=== PATIENT | female | born 1935 | race Caucasian/White ===

== ENCOUNTER 2022-08-08 07:42 | Observation (INO) | payer MEDICARE, SELFPAY ==
[2022-08-08] VITALS (40 sets, daily range): BP systolic 115–185; BP diastolic 46–106; PULSE 61–96; RESP 15–35; TEMP 36.4–36.9; O2SAT 88–100; BMI 23.5; BMI 22.1
--- NOTE | 2022-08-08 | ECG_ITS ---
APPROVED REPORT Exam: Resting ECG HR:77 bpm ECG Measurements Heart Rate 77 AXES CO 152 P 53 QRSd 132 QRS -31 QT 386 T 136 QTc 418 Conclusion SINUS RHYTHM LEFT AXIS DEVIATION [QRS AXIS < -30] LEFT BUNDLE BRANCH BLOCK [120+ ms QRS DURATION, 80+ ms Q/S IN V1/V2, 85+ ms R IN I/aVL/V5/V6] ABNORMAL ECG UNCONFIRMED REPORT Electronically signed by : Rodney Dobbs MD 08/08/2022 21:47:27
--- NOTE | 2022-08-08 07:51 | XR_ITS ---
FINAL REPORT CLINICAL HISTORY: SHORTNESS OF BREATH FINDINGS: A single portable view of the chest was obtained. There is cardiomegaly with pulmonary vascular congestion. The mediastinum is within normal limits. There are bilateral pulmonary opacities favor pulmonary edema. There are small pleural effusions. The bony thorax is intact. IMPRESSION: Bilateral pulmonary opacities, favor pulmonary edema, with small pleural effusions. Reviewed, Interpreted and Dictated by Kishore Gill III, MD Transcribed by Floridalma Fishman Authenticated and [facility]
[2022-08-08 07:52] LABS: ABG Base Excess -5.4 mmol/L (-2.4-2.3); ABG HCO3 20.8 mmhg (22.0-26.0); ABG Oxygen Saturation 87 % (90-100); ABG PCO2 41.8 mmhg (35.0-45.0); ABG PH 7.31 mmol/L (7.35-7.45); ABG PO2 56.8 mmhg (80-100)
[2022-08-08 07:53] LABS: Allen's Test acceptable; Source Right Radial
[2022-08-08 08:06] LABS: Alanine Aminotransferase 20 U/L (12-78); Albumin Level 3.8 g/dl (3.5-5.0); Albumin/Globulin Ratio 1.3 (1.1-1.8); Alkaline Phosphatase 145 U/L (38-126); Anion Gap 12.9 mEq/L (5-15); Aspartate Amino Transferase 36 U/L (14-36); Bilirubin,Total 0.6 mg/dl (0.2-1.3); Blood Urea Nitrogen 20 mg/dl (7-17); Calcium 8.3 mg/dl (8.4-10.2); Carbon Dioxide 23 mmol/L (22.0-30.0); Chloride 106 mmol/L (98-107); Creatinine Clearance Estimated 43 mL/min (50-200); Estimated Glomerular Filt Rate 52 ml/min (>60); GFR (African American) 63 ML/MIN (>60); Glucose 294 mg/dl (74-100); Potassium 3.9 mmoL/L (3.5-5.1); Sodium 138 mmol/L (136-145); Total Protein,Serum 6.8 g/dl (6.3-8.2)
[2022-08-08 08:12] LABS: Lactic Acid 3.7 mmol/L (0.7-2.1)
[2022-08-08 08:12] LABS: Coronavirus 19, PCR Not Detected (NotDetected); Influenza A, PCR Not Detected (NotDetected); Influenza B, PCR Not Detected (NotDetected)
[2022-08-08 08:15] LABS: NT Pro Brain Natriuretic Pep. 5370 pg/mL (0-450)
--- NOTE | 2022-08-08 08:33 | CA_ITS ---
APPROVED REPORT EXAM: Comprehensive 2D, Doppler, and color-flow Echocardiogram Concrete Pipe Maker: Rosa Cat CRT Ht: 5 ft 7 in Wt: 150lbs BSA: 1.79 BP: 166/70 mmHg Indications: Congestive Heart Failure, Shortness of Breath, Hypertension/HDD, DEMENTIA, CAROTID STENT 2D Dimensions LVOT 1.99 cm (M/F) 1.5-2.5 LA Volume 37.10 mL LA Volume Index 20.30 mL/m2 (M/F) 16-34 M-Mode Dimensions RVDd 1.74 cm (0.9-2.6) LA Diam 3.72 cm (1.9-4.0) LVDd 4.04 cm (3.5-5.7) Ao Diam 3.57 cm (2.0-3.7) LVDs 3.05 cm (3.5-5.7) IVSd 2.11 cm (0.6-1.1) PWd 0.78 cm (0.6-1.1) EF (Teich) 49.20% FS 24.50% EDV (Teich) 71.70 mL TAPSE 2.26 (<1.7) ESV (Teich) 36.40 mL LV Diastology E Decel Time 233.00 (160-240 msec) E/A Ratio 1.07 MED E' 3.80 (< 7 cm/sec) MED A' 6.80 cm/s E'/MED E' Ratio 21.08 (>14) LAT E' 8.10 (<10 cm/sec) LAT A' 10.60 cm/s E/LAT E' Ratio 9.89 (>14) Aortic Valve AI PHT 599.00 ms AO Peak GR. 4.30 mmHg Mitral Valve MV A Velocity 75.00 (40-130 cm/s) E/A Ratio 1.07 MV Decel. Time 233.00 (160-240 ms) Pulmonary Valve PV Peak Velocity 128.00 (50-150 cm/s) Tricuspid Valve TR P. Velocity 207.00 cm/s RAP Estimate 10.00 mmHg RVSP 27.10 mmHg Left Ventricle Left atrium is mildly enlarged, left ventricle is normal size mild concentric left ventricular hypertrophy, estimated ejection fraction 55% with no regional wall motion abnormality, grade 2 diastolic dysfunction seen without tissue Doppler evidence of raise left atrial pressure. Right Ventricle Right atrium and right ventricle are normal size and contractility. Aortic Valve Aortic valve is thickened and calcified without aortic stenosis, there is mild aortic insufficiency. Mitral Valve Mitral valve leaflets are minimally thickened, there is mild mitral regurgitation. Tricuspid Valve Tricuspid grossly normal, there is mild tricuspid regurgitation, tricuspid regurgitation jet velocity is inadequate for calculation of the right ventricular systolic pressure. Pulmonic Valve Pulmonic valve is poorly visualized. Great Vessels Aortic root is normal size. Inferior vena cava is poorly visualized. Pericardium Trivial pericardial effusion noted. There is left-sided pleural effusion noted. Conclusion 1. Mildly enlarged left atrium, normal left ventricular size mild concentric left ventricular hypertrophy, estimated ejection fraction 55% with no regional wall motion abnormality, grade 2 diastolic dysfunction seen without tissue Doppler evidence of raise left atrial pressure. 2. Thickened and calcified aortic valve without aortic stenosis, there is mild aortic insufficiency. 3. Mild mitral and tricuspid regurgitation. 4. Trivial pericardial effusion and left-sided pleural effusion seen. 5. Inferior vena cava is poorly visualized. Electronically signed by : Feliciano Gaming MD 08/08/2022 14:44:16
--- NOTE | 2022-08-08 08:34 | HMH.EDGENADL ---
Discharge Plan Disposition Patient Disposition: Admitted As Inpatient Condition: Serious Clinical Impressions Clinical Impression: Congestive heart failure, Non-ST elevated myocardial infarction, LBBB (left bundle branch block), Pulmonary edema, Acute respiratory failure with hypoxia, Acute hyperglycemia Discharge ED Provider: Matt Kaufman General Adult HPI General Chief complaint: Shortness of Breath/Dyspnea Stated complaint: chest pain Time Seen by Provider: 08/08/22 08:24 Mode of Arrival: EMS Source of Information: Patient Limitations: No Limitations Description of Symptoms (Recalled from ER Triage Doc. by RN): pt to ed via ems c/o shortness of breath. pt states she woke up and was short of air and diaphoretic. pt denies pain anywhere. pt is unsure of her medications or hx. pt seems to be a poor historian. History of Present Illness HPI narrative: History obtained from patient's daughter. The patient has dementia and is unable to give accurate history. Daughter states that the patient got up at 3:30 AM, her usual rising time. Shortly afterwards was seen to have some labored respirations. Few hours later complained of shortness of breath and had rattling respirations. She complained of some chest pain, which she currently denies. No recent cough or fever, vomiting or diarrhea. Daughter states she drank a lot of water yesterday, she is not sure why. She has no known heart or lung disease according to her daughter. Related Data Home Medications Medication Instructions Recorded Confirmed amlodipine 5 mg tablet 5 mg PO DAILY Hypertension 08/08/22 08/08/22 atenolol 50 mg tablet 50 mg PO DAILY Hypertension 08/08/22 08/08/22 clopidogrel 75 mg tablet 75 mg PO DAILY PLATLET INHIBITOR 08/08/22 08/08/22 conjugated estrogens 0.625 mg/gram 1 applic vaginal DIRECTED 08/08/22 08/08/22 vaginal cream (Premarin) HORMONE THERAPY donepezil 10 mg tablet 20 mg PO DAILY MEMORY 08/08/22 08/08/22 levothyroxine 75 mcg tablet 75 mcg PO 2359 THYROID 08/08/22 08/08/22 losartan 100 mg tablet 100 mg PO DAILY Hypertension 08/08/22 08/08/22 memantine 10 mg tablet 10 mg PO BID MEMORY 08/08/22 08/08/22 omeprazole 20 mg capsule,delayed 20 mg PO BID GERD 08/08/22 08/08/22 release pravastatin 10 mg tablet 10 mg PO DAILY Cholesterol 08/08/22 08/08/22 risperidone 1 mg tablet 1 mg PO HS MOOD 08/08/22 08/08/22 Allergies Allergy/AdvReac Type Severity Reaction Status Date / Time erythromycin base Allergy Unknown Verified 08/08/22 13:02 allergy reaction sulfamethoxazole Allergy Unknown Verified 08/08/22 13:02 [From Bactrim] allergy reaction trimethoprim [From Bactrim] Allergy Unknown Verified 08/08/22 13:02 allergy reaction PFSH [facility] Disclaimer: The information contained in this section may have been updated after the patient was seen, as this information can be updated by other users. Medical History HTN (hypertension) Social History (Updated 08/08/22 @ 17:11 by Logan Mustafa MD) Smoking Status: Never smoker alcohol intake: never current occupational status: retired Travel in the last 8 weeks: None ROS Obtained: Yes unobtainable due to mental condition Physical Exam General General appearance: alert and in distress (Tachypnea, mildly labored respirations, audible rattling respirations.) Head Head exam: atraumatic and normocephalic Eye Eye exam: Present normal appearance and EOMI ENT ENT exam: Present mucous membranes moist Neck Neck exam: Present normal inspection and trachea midline Chest Chest inspection: Present normal inspection and symmetric chest wall rise Respiratory Respiratory exam: Present respiratory distress and other (Bilateral crackles) Cardiovascular Cardiovascular exam: Present regular rate, normal rhythm and normal heart sounds Abdominal Exam Abdominal exam: Present soft and normal bowel sounds; Absent distentio
[2022-08-08 08:38] LABS: Basophils # 0.2 K/mm3 (0-0.2); Basophils % 1.1 % (0.1-2.0); Eosinophils # 0.6 K/mm3 (0.0-0.4); Eosinophils % 4.2 % (0.1-12.0); Hematocrit 42.7 % (37.0-47.0); Hemoglobin 13.5 g/dL (12.2-16.2); Lymphocytes # 4.2 K/mm3 (0.7-4.5); Lymphocytes % 27.2 % (10-50); Mean Corpuscular HGB Conc 31.6 g/dL (31.8-35.4); Mean Corpuscular Hemoglobin 30.6 pg (27.0-31.2); Mean Corpuscular Volume 97.1 fl (81-99); Mean Platelet Volume 8.4 fl (7.4-10.4); Monocytes % 6.2 % (1.7-9.3); Neutrophils # 9.4 K/mm3 (1.8-7.8); Neutrophils % 61.3 % (37.0-80.0); Platelet Count 362 K/mm3 (142-424); Red Blood Count 4.39 M/mm3 (4.20-5.40); Red Cell Distribution Width 14.1 % (11.5-17.5); White Blood Count 15.3 K/mm3 (4.8-10.8)
[2022-08-08 08:42] LABS: MANUAL DIFFERENTIAL MANUAL DIFFERENTIAL (MANUAL DIFF)
--- NOTE | 2022-08-08 08:43 | PC.NURSE ---
Called cardiology for consult on patient, stated that they would send Mateusz Frausto over.
[2022-08-08 08:56] LABS: Troponin I 0.44 ng/ml (0.00-0.034)
[2022-08-08 08:58] LABS: Microscopic, Urine URINE MICROSCOPIC (MICROSCOPIC)
--- NOTE | 2022-08-08 08:58 | PC.NURSE ---
nasrin miller at the bedside
[2022-08-08 09:01] LABS: Appearance,Urine CLEAR (Clear); Bilirubin,Urine Negative (Negative); Blood, Urine Negative (Negative); Color,Urine YELLOW (Yellow); Glucose,Urine (UA) 2+ (Negative); Ketones,Urine TRACE (Negative); Leukocyte Esterase,Urine Negative (Negative); Nitrate,Urine Negative (Negative); PH,Urine 6.5 (5.0-8.5); Protein,Urine 3+ (Negative); Specific Gravity, Urine 1.025 (1.005-1.030); Urobilinogen,Urine 0.2 EU/dl (0.2)
[2022-08-08 09:03] LABS: Eosinophils % 4 % (0-3); Lymphocytes % 30 % (10-50); Monocytes % 6 % (2-9); Neutrophils % 60 % (42-76); Platelet Estimate Normal; RBC Morphology Normal; Total Cells Counted 100
[2022-08-08 09:10] LABS: RBC,Urine Occasional #/hpf (0-3); Squamous Epithelial Cell,Urine Occasional #/hpf (0-5); WBC,Urine Occasional #/hpf (0-3)
--- NOTE | 2022-08-08 09:13 | PC.NURSE ---
speaking to dr grissom
--- NOTE | 2022-08-08 09:20 | EXP.CARD.CON ---
History of Present Illness History of Present Illness Consult date: 08/08/22 Requesting physician: Matt Kaufman Consult reason: congestive heart failure Chief complaint: SOA Additional Medical History:: 1. Longstanding hypertension 2. Hyperlipidemia 3. History of carotid stenting with long-term Plavix use 4. Dementia 5. Abnormal EKG with left bundle branch block, chronicity unknown 6. Congestive heart failure, new, 08/08/2022 7. Elevated troponin, 08/08/2022 8. DNR History of present illness: History obtained from patient's daughter.? The patient has dementia and is unable to give accurate history.? Daughter states that the patient got up at 3:30 AM, her usual rising time.? Shortly afterwards was seen to have some labored respirations.? Few hours later complained of shortness of breath and had rattling respirations.? She complained of some chest pain, which she currently denies.? No recent cough or fever, vomiting or diarrhea.? Daughter states she drank a lot of water yesterday, she is not sure why.? She has no known heart or lung disease according to her daughter. The above per Dr. Kaufman Events above confirmed with daughter. No prior history of cardiac issues. The daughter does relate that the patient was informed of a in the family about 5 or 6 days ago but she is unsure as to whether the patient even knows who . Patient has been living with the daughter now for about 5 years. EKG is sinus rhythm with left bundle branch block First troponin is elevated at 0.44. Discussed option of left heart catheterization with the daughter who is not sure she wants to proceed with that at this time. We will await the results of the echocardiogram and discuss again. Patient has been given 40 of Lasix IV, catheter has been placed and she is on nitroglycerin drip for elevated blood pressure. The patient denies any chest pain, pressure or tightness. She is on oxygen by Ventimask. [facility] Disclaimer: The information contained in this section may have been updated after the patient was seen, as this information can be updated by other users. Medical History HTN (hypertension) Social History (Updated 08/08/22 @ 17:11 by Logan Mustafa MD) Smoking Status: Never smoker alcohol intake: never current occupational status: retired Travel in the last 8 weeks: None Review of Systems Review of Systems Review of systems:: unable to obtain Exam Data for Last 24 hours Vital signs and Labs for Last 24 Hours: Temp Pulse Resp BP Pulse Ox 98.4 F 84 33 H 166/70 H 96 08/08/22 07:58 08/08/22 08:31 08/08/22 08:31 08/08/22 08:31 08/08/22 08:31 Laboratory Results - last 24 hr 08/08/22 07:45: WBC 15.3 H, RBC 4.39, Hgb 13.5, Hct 42.7, MCV 97.1, MCH 30.6, MCHC 31.6 L, RDW 14.1, Plt Count 362, MPV 8.4, Neut % (Auto) 61.3, Lymph % (Auto) 27.2, [place] % (Auto) 6.2, Eos % (Auto) 4.2, Baso % (Auto) 1.1, Neut # (Auto) 9.4 H, Lymph # (Auto) 4.2, [place] # (Auto) 1.0, Eos # (Auto) 0.6 H, Baso # (Auto) 0.2, Total Counted 100, Neutrophils % (Manual) 60, Lymphocytes % (Manual) 30, Monocytes % (Manual) 6, Eosinophils % (Manual) 4 H, Platelet Estimate Normal, RBC Morphology Normal 08/08/22 07:45: Sodium 138, Potassium 3.9, Chloride 106, Carbon Dioxide 23, Anion Gap 12.9, BUN 20 H, Creatinine 1.00, Estimated Creat Clear 43, Estimated GFR 52 L, Est GFR ( Amer) 63, Glucose 294 H, Calcium 8.3 L, Total Bilirubin 0.6, AST 36, ALT 20, Alkaline Phosphatase 145 H, Total Protein 6.8, Albumin 3.8, Globulin 3.0, Albumin/Globulin Ratio 1.3 08/08/22 07:45: Lactate 3.7 H 08/08/22 07:45: NT-Pro-B Natriuret Pep 5370 H 08/08/22 07:45: Troponin I 0.44 H 08/08/22 07:47: SARS-CoV-2 (PCR) Not detected, Influenza A Untype (PCR) Not detected, Influenza Type B (PCR) Not detected 08/08/22 07:49: Specimen Source Right radial, O2 % 4 lpm, ABG pH 7.31 L, ABG pCO2 41.8, ABG pO2 56.8 L, ABG HCO3 20.8 L, ABG Total CO2 22.0
[2022-08-08 10:09] LABS: Hemoglobin A1C 6.7 % (4.0-6.0)
--- NOTE | 2022-08-08 10:47 | PC.NURSE ---
called care management for admission
--- NOTE | 2022-08-08 11:38 | PC.NURSE ---
called report to itzel aldridge
--- NOTE | 2022-08-08 11:46 | PC.NURSE ---
rounded on pt to see if they had any needs advised the pt that they were being admitted and would be going to a room here shortly. No other needs at this time
[2022-08-08 11:56] LABS: Reflex Lactic Add Lactic Reflex
--- NOTE | 2022-08-08 11:58 | PC.NURSE ---
patient arrived to floor by stretcher from ED
[2022-08-08 12:34] LABS: Troponin I 0.94 ng/ml (0.00-0.034)
[2022-08-08 12:51] LABS: Lactic Acid Follow Up (RFLX 1) 2.1 mmol/L (0.7-2.1)
--- NOTE | 2022-08-08 12:59 | HMH.PHAINT1 ---
Pharmacy Intervention Comments: MEDICATION RECONCILIATION COMPLETED ON PATIENT USING EXTERNAL FILL HISTORY FROM PHARMACY. -GISELL ROJAS, TRISHAD
[2022-08-08 14:19] LABS: Reflex Lactic (2 hrs) Add Lactic Reflex
--- NOTE | 2022-08-08 15:12 | EXP.HP ---
History of Present Illness *Admission Date: 08/08/22 *Reason for visit:: Shortness of breath, elevated blood pressure *History of present illness: Ms. Fournier is an 87-year-old female with history of dementia and hypertension and hypothyroidism who presented to the ER via EMS after having respiratory distress at home. She lives with her daughter who is her caregiver and gives history as patient is unable to give accurate history or review of systems due to her underlying dementia. Daughter states that this morning about 330 patient woke up and developed some shortness of breath shortly thereafter. Seem to have some labored breathing that lasted for few hours. Complained of shortness of breath and had rattling with respirations. Blood pressure noted to be elevating at home. Complained of some mild chest discomfort, so EMS was contacted and patient brought to the ER. Daughter denies any recent illness, cough, fever, nausea or vomiting, diarrhea. Patient has been having increased frequency of urination but also drinking more water lately. To the ER, found to have respiratory distress with new onset of oxygen requirement, escalated to Ventimask before admission. EKG in sinus rhythm with left bundle branch block. Elevation of initial troponin to 0.44. Admitted to medicine for further management of acute CHF exacerbation, NSTEMI, acute hypoxemic respiratory failure. Cardiology consulted while in the ER. Evaluation after arriving to the floor, patient is pleasant but able to give history. Denies any chest pain. Has weaned to 2 L nasal cannula oxygen. Diuresing well with good urine output. Repeat troponin increasing but telemetry does not show ST elevations at this time. Family hesitant for aggressive treatments, wants to continue with conservative management. Patient denies any worsening shortness of breath. Blood pressures improved on nitroglycerin drip with systolics in the 150s. [facility] Disclaimer: The information contained in this section may have been updated after the patient was seen, as this information can be updated by other users. Medical History HTN (hypertension) Social History Smoking Status: Never smoker alcohol intake: never current occupational status: retired Travel in the last 8 weeks: None Review of Systems Review of Systems Review of systems (narrative): 14 point review of systems performed, pertinent positives and negatives as per HPI Meds Home Medications and Allergies Home Medications Medication Instructions Recorded Confirmed Type amlodipine 5 mg tablet 5 mg PO DAILY Hypertension 08/08/22 08/08/22 History atenolol 50 mg tablet 50 mg PO DAILY Hypertension 08/08/22 08/08/22 History clopidogrel 75 mg tablet 75 mg PO DAILY PLATLET INHIBITOR 08/08/22 08/08/22 History conjugated estrogens 0.625 mg/gram 1 applic vaginal DIRECTED 08/08/22 08/08/22 History vaginal cream (Premarin) HORMONE THERAPY donepezil 10 mg tablet 20 mg PO DAILY MEMORY 08/08/22 08/08/22 History levothyroxine 75 mcg tablet 75 mcg PO 2359 THYROID 08/08/22 08/08/22 History losartan 100 mg tablet 100 mg PO DAILY Hypertension 08/08/22 08/08/22 History memantine 10 mg tablet 10 mg PO BID MEMORY 08/08/22 08/08/22 History omeprazole 20 mg capsule,delayed 20 mg PO BID GERD 08/08/22 08/08/22 History release pravastatin 10 mg tablet 10 mg PO DAILY Cholesterol 08/08/22 08/08/22 History risperidone 1 mg tablet 1 mg PO HS MOOD 08/08/22 08/08/22 History New Prescriptions to Start Prescriptions: Allergies Allergy/AdvReac Type Severity Reaction Status Date / Time erythromycin base Allergy Unknown Verified 08/08/22 13:02 allergy reaction sulfamethoxazole Allergy Unknown Verified 08/08/22 13:02 [From Bactrim] allergy reaction trimethoprim [From Bactrim] Allergy Unknown Verified 08/08/22 13:02 allergy
[2022-08-08 15:37] LABS: Lactic Acid Follow up (RFLX 2) 2.5 mmol/L (0.7-2.1)
[2022-08-08 16:09] LABS: Troponin I 1.25 ng/ml (0.00-0.034)
--- NOTE | 2022-08-08 17:19 | PC.NURSE ---
Nitro drip decreased to 5mcg at 1600 Nitro drip placed on standby at 1630
[2022-08-08 21:06] LABS: POC Glucose,Bedside 136 (70-110)
[2022-08-09] VITALS (8 sets, daily range): BP systolic 108–149; BP diastolic 44–59; PULSE 58–71; RESP 15–22; TEMP 36.4–36.5; O2SAT 92–97; BMI 21.4
--- NOTE | 2022-08-09 04:00 | PC.NURSE ---
pt rested well through the night, no changes from previous assessment, f/c to bsd with cyu noted, telemetry reveals nsr with bbb, vss, no acute distress, pt alert and oriented to name only, pt unable to verbalized bday. year or place. no other issues or concerns at this time, 1+ pitting edema to ble noted.
[2022-08-09 06:27] LABS: POC Glucose,Bedside 175 (70-110)
[2022-08-09 06:57] LABS: Basophils # 0.1 K/mm3 (0-0.2); Basophils % 0.8 % (0.1-2.0); Eosinophils # 0.5 K/mm3 (0.0-0.4); Eosinophils % 5.7 % (0.1-12.0); Hematocrit 36.8 % (37.0-47.0); Lymphocytes # 1.9 K/mm3 (0.7-4.5); Lymphocytes % 22.2 % (10-50); Mean Corpuscular Hemoglobin 31.1 pg (27.0-31.2); Mean Corpuscular Volume 97.1 fl (81-99); Mean Platelet Volume 7.9 fl (7.4-10.4); Monocytes # 0.7 K/mm3 (0.1-1.0); Monocytes % 7.8 % (1.7-9.3); Neutrophils # 5.4 K/mm3 (1.8-7.8); Neutrophils % 63.5 % (37.0-80.0); Platelet Count 224 K/mm3 (142-424); Red Blood Count 3.79 M/mm3 (4.20-5.40); Red Cell Distribution Width 14.2 % (11.5-17.5); White Blood Count 8.5 K/mm3 (4.8-10.8)
[2022-08-09 06:58] LABS: Alanine Aminotransferase 14 U/L (12-78); Albumin Level 3.2 g/dl (3.5-5.0); Albumin/Globulin Ratio 1.2 (1.1-1.8); Alkaline Phosphatase 122 U/L (38-126); Anion Gap 8.9 mEq/L (5-15); Aspartate Amino Transferase 30 U/L (14-36); Bilirubin,Total 0.5 mg/dl (0.2-1.3); Blood Urea Nitrogen 23 mg/dl (7-17); Calcium 8.3 mg/dl (8.4-10.2); Carbon Dioxide 28 mmol/L (22.0-30.0); Chloride 105 mmol/L (98-107); Creatinine Clearance Estimated 36 mL/min (50-200); Estimated Glomerular Filt Rate 52 ml/min (>60); GFR (African American) 63 ML/MIN (>60); Globulin 2.7 g/dL (1.3-3.2); Glucose 160 mg/dl (74-100); Magnesium 1.9 mg/dl (1.6-2.3); Potassium 3.9 mmoL/L (3.5-5.1); Sodium 138 mmol/L (136-145); Total Protein,Serum 5.9 g/dl (6.3-8.2)
[2022-08-09 07:09] LABS: Hemoglobin 11.9 g/dL (12.2-16.2)
--- NOTE | 2022-08-09 09:24 | EXP.CARD.PN ---
Subjective Subjective Date: 08/09/22 Time: 09:33 Principal diagnosis: CHF Interval history: 87-year-old white female in bed in no acute distress. Oxygen requirement has dramatically increased with diuresis. Patient is on 1 L of oxygen nasal cannula at this time. She has had a net -2 L urine output with IV diuretics. Exam Data for Last 24 hours Vital signs and Labs for Last 24 Hours: Temp Pulse Resp BP Pulse Ox 97.7 F 62 22 130/52 L 95 08/09/22 08:00 08/09/22 06:00 08/09/22 06:00 08/09/22 06:00 08/09/22 06:00 Laboratory Results - last 24 hr 08/08/22 07:45: TSH 15.70 H 08/08/22 07:45: Hemoglobin A1c 6.7 H 08/08/22 11:45: Troponin I 0.94 H 08/08/22 12:15: Lactate 2.1 08/08/22 14:48: Troponin I 1.25 H 08/08/22 14:48: Lactate 2.5 H 08/08/22 20:51: POC Glucose 136 H 08/09/22 05:30: WBC 8.5 D, RBC 3.79 L, Hgb 11.9 L D, Hct 36.8 L, MCV 97.1, MCH 31.1, MCHC 32.0, RDW 14.2, Plt Count 224 D, MPV 7.9, Neut % (Auto) 63.5, Lymph % (Auto) 22.2, [place] % (Auto) 7.8, Eos % (Auto) 5.7, Baso % (Auto) 0.8, Neut # (Auto) 5.4, Lymph # (Auto) 1.9, [place] # (Auto) 0.7, Eos # (Auto) 0.5 H, Baso # (Auto) 0.1 08/09/22 05:30: Sodium 138, Potassium 3.9, Chloride 105, Carbon Dioxide 28, Anion Gap 8.9, BUN 23 H, Creatinine 1.00, Estimated Creat Clear 36, Estimated GFR 52 L, Est GFR ( Amer) 63, Glucose 160 H D, Calcium 8.3 L, Magnesium 1.9, Total Bilirubin 0.5, AST 30, ALT 14 D, Alkaline Phosphatase 122, Total Protein 5.9 L, Albumin 3.2 L D, Globulin 2.7, Albumin/Globulin Ratio 1.2 08/09/22 06:09: POC Glucose 175 H I & O for Last 24 hours: Intake & Output 08/06/22 08/07/22 08/08/22 08/09/22 11:59 11:59 11:59 11:59 Intake Total 731 / 731 Output Total 2370 / 2370 Balance -1639 / -1639 Weight 150 lb 128 lb 6.4 oz Microbiology Reports for the Last 24 Hours: Microbiology 08/08/22 08:15 Sputum - Nasotracheal Suction Gram Stain - Final Constitutional Constitutional: no acute distress *Routine Respiratory Exam Respiratory: Present CTA bilaterally and diminished air movement *Routine Cardiovascular Exam Cardiovascular: Present RRR Progress Note: A&P Assessment and plan (1) Acute respiratory failure with hypoxia: Status: Acute (2) Hypertensive urgency: Status: Acute (3) Congestive heart failure: Status: Acute (4) Non-ST elevated myocardial infarction: Status: Acute (5) LBBB (left bundle branch block): Status: Acute (6) Pulmonary edema: Status: Acute (7) Hypothyroid: Status: Chronic (8) Acute hyperglycemia: Status: Acute (9) Dementia: Status: Chronic Assessment and Plan Assessment and Plan for All Diagnoses:: 1.? Congestive heart failure, new onset. HFpEF secondary to diastolic dysfunction -Good response to IV Lasix, will switch to oral today -Will add low dose spironolactone -Echo EF 55% with no regional WMA, grade 2 diastolic dysfunction noted. Thickened and calcified aortic valve without stenosis. Mild AI. 2.? NSTEMI.? -Discussed options of left heart catheterization with the patient's daughter who is her power of orthotic finish grinding technician who wants conservative treatment. -Continue Plavix 75 mg daily 3.? Abnormal EKG with left bundle branch block, chronicity unknown. -No arrhythmias on telemetry 4.? History of hypertension -Controlled on atenolol, amlodipine and ARB 5.? Hypothyroidism with TSH 15.7 this admission -On replacement, defer to hospitalist 6.? Acute respiratory failure with hypoxia,? [place] secondary to congestive heart failure -Significantly improved after diuresis 7.? DNR 8. Dementia -On memantine and donepezil along with risperidone Cardiac status has improved. If daughter continues to wish conservative treatment, patient could be discharged home later today. Follow-up in our office in 1 to 2 weeks. Home medication recommendations Atenolol 50 mg daily Amlodipine 5 mg daily Spironolactone 25 mg daily Lasix 20 mg daily Plavix 75
[2022-08-09 10:18] LABS: Troponin I 1.59 ng/ml (0.00-0.034)
--- NOTE | 2022-08-09 10:35 | EXP.DC.SUM ---
General Admission date:: 08/08/22 Discharge date: 08/09/22 HPI HPI HPI: Ms. Fournier is an 87-year-old female with history of dementia and hypertension and hypothyroidism who presented to the ER via EMS after having respiratory distress at home. She lives with her daughter who is her caregiver and gives history as patient is unable to give accurate history or review of systems due to her underlying dementia. Daughter states that this morning about 330 patient woke up and developed some shortness of breath shortly thereafter. Seem to have some labored breathing that lasted for few hours. Complained of shortness of breath and had rattling with respirations. Blood pressure noted to be elevating at home. Complained of some mild chest discomfort, so EMS was contacted and patient brought to the ER. Daughter denies any recent illness, cough, fever, nausea or vomiting, diarrhea. Patient has been having increased frequency of urination but also drinking more water lately. To the ER, found to have respiratory distress with new onset of oxygen requirement, escalated to Ventimask before admission. EKG in sinus rhythm with left bundle branch block. Elevation of initial troponin to 0.44. Admitted to medicine for further management of acute CHF exacerbation, NSTEMI, acute hypoxemic respiratory failure. Cardiology consulted while in the ER. Evaluation after arriving to the floor, patient is pleasant but able to give history. Denies any chest pain. Has weaned to 2 L nasal cannula oxygen. Diuresing well with good urine output. Repeat troponin increasing but telemetry does not show ST elevations at this time. Family hesitant for aggressive treatments, wants to continue with conservative management. Patient denies any worsening shortness of breath. Blood pressures improved on nitroglycerin drip with systolics in the 150s. Hospital Course Hospital Course Hospital Course: 87-year-old female who presents with shortness of breath and elevated BNP concerning for acute onset of CHF.? Cardiology consulted, appreciate their recommendations.? Admitted for further management, problems addressed as follows: CHF Elevated troponin NSTEMI Left bundle branch block -Cardiology consulted, appreciate their recommendations. Diuresed with IV Lasix due to BNP greater than 5000 on admission. Able to come off nitroglycerin drip. Echo obtained showing preserved ejection fraction of 55%, grade 2 diastolic dysfunction. Cardiology discussed left heart cath with patient and patient's daughter. They prefer conservative management at this time. Cardiology recommends follow-up in 1 to 2 weeks. Continue with home's of atenolol 50 mg daily, amlodipine 5 mg daily, spironolactone 25 mg daily, Lasix 25 mg daily, Plavix daily, losartan 100 mg daily, Protonix and pravastatin. Blood pressure has remained stable after resuming home regimen. Off nitro drip for over 18 hours. Hemodynamically stable, meeting discharge criteria. Acute hypoxemic respiratory failure -Secondary to above, weaned oxygen very quickly with goal saturation greater 90%. Stable on room air at discharge. Hypothyroid -TSH 15, reportedly takes 75 mcg daily at home per daughter. Increased dosage to 100 mcg daily. Hyperglycemia New diagnosis of diabetes -A1c obtained, 6.7, diagnostic for diabetes. Treated with sliding scale insulin during admission. Did not initiate metformin at discharge. Will defer further medication discussion to PCP. Stable for discharge home with family. Exam Data for Last 24 hours Vital signs and Labs for Last 24 Hours: Temp Pulse Resp BP Pulse Ox 97.7 F 64 19 121/59 L 97 08/09/22 08:00 08/09/22 10:00 08/09/22 10:00 08/09/22 10:00 08/09/22 10:00 Laboratory Results - last 24 hr 08/08/22 11:45: Troponin I 0.94 H 08/08/22 12:15: Lactate 2.1 08/08/22 14:48: Troponin I 1.25 H 08/08/22 14:48: Lactate 2.5 H 08/08/22 20:51: POC Glucose 136 H 08/09/22 05:30: WBC 8.5 D, RBC
[2022-08-09 11:04] LABS: POC Glucose,Bedside 138 (70-110)
--- NOTE | 2022-08-09 13:38 | HMH.PHAINT1 ---
Pharmacy Intervention Comments: Met with patient and daughter at bedside to [employer] guidance counselor on discharge medications. Patient's daughter and son-in-law manage the patient's medications. Discussed NEW diuretics (furosemide, spironolactone) and increased levothyroxine and pravastatin doses as well as continued medications. Overviewed indications, possible adverse effects, and mitigation strategies for each. Addressed concerns about timing of levothyroxine by advising to take first thing in the morning; this will require slight rearrangement of their routine. Daughter verbalized understanding of all information provided and had no further questions or concerns at this time. -Tessy Car, PharmD Candidate 2022
--- NOTE | 2022-08-09 16:20 | ECG_ITS ---
APPROVED REPORT Exam: Resting ECG HR:70 bpm ECG Measurements Heart Rate 70 AXES ND 176 P 43 QRSd 103 QRS -35 QT 399 T -35 QTc 419 Conclusion SINUS RHYTHM LEFT AXIS DEVIATION [QRS AXIS < -30] VOLTAGE CRITERIA FOR LVH [MEETS CRITERIA IN ONE OF: R(aVL), S(V1), R(V5), R(V5/V6)+S(V1)] Old anteroseptal changes ABNORMAL ECG UNCONFIRMED REPORT Electronically signed by : Rodney Dobbs MD 08/09/2022 13:21:28
== END 2022-08-09 14:15 | disposition home or self-care (01) ==
LOC: ER 09:01 → 2ND 13:07
PROVIDERS: Physician Assistant; Admitting Provider Internal Medicine Adolescent Medicine; Emergency Provider Emergency Medicine; PCP Internal Medicine; Visit Provider Internal Medicine Adolescent Medicine
DX: J96.01 Acute respiratory failure with hypoxia (principal); I16.0 Hypertensive urgency; I21.4 Non-ST elevation (NSTEMI) myocardial infarction; I44.7 Left bundle-branch block, unspecified; J81.1 Chronic pulmonary edema; E03.9 Hypothyroidism, unspecified; R73.9 Hyperglycemia, unspecified; F03.90 Unspecified dementia, unspecified severity, without behavioral disturbance, psychotic disturbance, mood disturbance, and anxiety; Z79.899 Other long term (current) drug therapy; I50.31 Acute diastolic (congestive) heart failure; I11.0 Hypertensive heart disease with heart failure; Z20.822 Contact with and (suspected) exposure to COVID-19
CPT/HCPCS: G0378; 36415; 51702; 71045; 80053; 81001; 82803; 82962; 83036; 83605; 83735; 83880; 84443; 84484; 85007; 85025; 87040; 87070; 87205; 93005; 93306; 99291; C9803; U0003; U0005

== ENCOUNTER 2022-11-02 11:13 | Emergency (ER) | payer MEDICARE, SELFPAY ==
--- NOTE | 2022-11-02 11:13 | PC.NURSE ---
pt arrived to ed at 1109 as a code in progress r/t respiratory failure, witnessed at home. ems reports pt remained PEA in route to ed. pt intubated and 20g IV to the right AC established by ems in route to ed. 1109-cpr in progress 1111-1mg epi given 1111- pulse check revealed PEA, compressions resumed 1113- pulse check revealed PEA, compressions resumed 1114-1mg epi given 1115- pulse check revealed PEA, compressions resumed no epi given per MD request at this time 1117- per u/s by cardiac standstill. TOD 1117 called. Pharmacy and housekeeping aid at the bedside.
--- NOTE | 2022-11-02 11:18 | HMH.EDGENADL ---
Discharge Plan Disposition Patient Disposition: Date/Time: 11/02/22 11:17 Clinical Impressions Clinical Impression: Acute respiratory failure with hypoxia, Cardiac arrest Discharge ED Provider: Mariana Webster General Adult HPI General Stated complaint: resucitation Time Seen by Provider: 11/02/22 11:26 History of Present Illness HPI narrative: This patient is an 87-year-old female with a history of hypertension, CHF, and dementia presenting to the emergency department as a CODE BLUE. According to EMS, they were called to the scene for respiratory distress just prior to arrival. They found the patient sitting upright in a chair with agonal respirations. They had no pulse on their assessment, so they initiated CPR. They intubated the patient on scene. She received epi x2 in route. Initial rhythm and rhythm on subsequent checks was PEA. Patient has been down for over 25 minutes at this time. They do not know anything further about her medical history at this time. No family is at bedside. Related Data Home Medications Medication Instructions Recorded Confirmed amlodipine 5 mg tablet 5 mg PO DAILY Hypertension 08/08/22 08/16/22 atenolol 50 mg tablet 50 mg PO DAILY Hypertension 08/08/22 08/16/22 clopidogrel 75 mg tablet 75 mg PO DAILY PLATLET INHIBITOR 08/08/22 08/16/22 conjugated estrogens 0.625 mg/gram 1 applic vaginal DIRECTED 08/08/22 08/16/22 vaginal cream (Premarin) HORMONE THERAPY donepezil 10 mg tablet 20 mg PO DAILY MEMORY 08/08/22 08/16/22 losartan 100 mg tablet 100 mg PO DAILY Hypertension 08/08/22 08/16/22 memantine 10 mg tablet 10 mg PO BID MEMORY 08/08/22 08/16/22 omeprazole 20 mg capsule,delayed 20 mg PO BID GERD 08/08/22 08/16/22 release risperidone 1 mg tablet 1 mg PO HS MOOD 08/08/22 08/16/22 Previous Rx's Medication Instructions Recorded furosemide 20 mg tablet 20 mg PO DAILY 30 days #30 tabs 08/09/22 levothyroxine 100 mcg tablet 100 mcg PO DAILYDM 30 days #30 tabs 08/09/22 (Synthroid) pravastatin 20 mg tablet 20 mg PO DAILY 30 days #30 tabs 08/09/22 spironolactone 25 mg tablet 25 mg PO DAILY 30 days #30 tabs 08/09/22 Allergies Allergy/AdvReac Type Severity Reaction Status Date / Time erythromycin base Allergy Unknown Verified 08/16/22 14:18 allergy reaction sulfamethoxazole Allergy Unknown Verified 08/16/22 14:18 [From Bactrim] allergy reaction trimethoprim [From Bactrim] Allergy Unknown Verified 08/16/22 14:18 allergy reaction PFSH PFSH Disclaimer: The information contained in this section may have been updated after the patient was seen, as this information can be updated by other users. Medical History HTN (hypertension) Social History Smoking Status: Never smoker alcohol intake: never current occupational status: retired Travel in the last 8 weeks: None ROS Obtained: Yes other Unable to obtain secondary to acuity of condition and intubation Physical Exam General General appearance: other (Unresponsive with no signs of life) Comment: Unresponsive, no signs of life. Covered in large amount of emesis. Head Head exam: atraumatic and normocephalic Eye Eye exam: Present other (Pupils fixed and dilated) ENT ENT exam: Present other (ET tube in place with pooling of emesis and secretions in the mouth) Neck Neck exam: Present normal inspection Chest Chest inspection: Present other (Chest compressions in progress) Respiratory Respiratory exam: Present other (Bilateral coarse breath sounds heard with BVM. No spontaneous respirations.) Cardiovascular Cardiovascular exam: Present other (PEA on the monitor, no palpable pulses. No discernible cardiac activity on ultrasound.) Abdominal Exam Abdominal exam: Present soft; Absent distention, tenderness or guarding Extremities Exam Extremities exam: Present no
--- NOTE | 2022-11-02 11:25 | PC.NURSE ---
Accompanied with MD at this time to speak with family
--- NOTE | 2022-11-02 11:30 | PC.NURSE ---
family approached staff at this time and state they want to use [facility] and asked to have the home contact them. srinivasan notified at this time.
--- NOTE | 2022-11-02 11:50 | PC.NURSE ---
contacted [facility] at this time and spoke with Gogo Gannon who released body to home.
--- NOTE | 2022-11-02 11:58 | PC.NURSE ---
Fernando at the bedside at this time
== END 2022-11-02 12:23 | disposition expired ==
PROVIDERS: Emergency Provider Emergency Medicine
DX: J96.01 Acute respiratory failure with hypoxia (principal); I46.9 Cardiac arrest, cause unspecified
CPT/HCPCS: 92950; 93308; 99285